=== PATIENT | female | born 1955 | race Caucasian/White ===

== ENCOUNTER 2022-08-11 16:51 | Emergency (ER) | payer OTHER ==
[~2022-08-11] VITALS: Ht 167.6 cm; Wt 96.2 kg
[2022-08-11 17:10] VITALS: BP 148/91
[2022-08-11 17:50] LABS: BASOPHIL # 0.1 10^3/uL (0.0-0.1); BASOPHIL % 0.7 % (0.0-0.2); EOSINOPHIL # 0.2 10^3/uL (0.0-0.2); LYMPHOCYTES # 1.95 10^3/uL1 (1.0-4.8); LYMPHOCYTES % 24.3 % (24.0-44.0); MEAN CORP HGB 30.8 pg (26-34); MONOCYTES # 0.7 10^3/uL (0.3-0.8); MONOCYTES % 8.6 % (5.0-12.0); NEUTROPHIL # 5.1 10^3/uL (1.8-7.7); NEUTROPHILS % 64.2 % (41.0-85.0); PLATELET COUNT 283 10^3/uL (150-400); RED CELL DISTRIBUTION WIDTH 13.5 % (11.5-14.5)
[2022-08-11 18:01] LABS: CARBON DIOXIDE 22.7 mmol/L (20.0-32)
--- NOTE | 2022-08-11 18:04 | DIREP ---
PROCEDURE:CHEST 1 VIEW COMPARISON:None. INDICATIONS:sob FINDINGS: LUNGS/PLEURA:Mild interstitial thickening within the bilateral hemithoraces may reflect senescent changes or potential underlying chronic lung disease. No confluent airspace consolidation, pleural effusion or pneumothorax is identified. VASCULATURE:Normal. Unremarkable pulmonary vasculature. CARDIAC:Normal. No cardiac silhouette abnormality or cardiomegaly. MEDIASTINUM:Normal. No visible mass or adenopathy. BONES:Degenerative changes of the spine. Remote healed fracture of the left mid clavicle. Degenerative changes of the shoulders. CONCLUSION: 1. Senescent changes versus potential underlying chronic lung disease. No superimposed acute cardiopulmonary abnormality is identified. Dictated by: Juan Nevarez M.D. On 08/11/2022 at 05:59 PM
--- NOTE | 2022-08-11 18:52 | PCM.EKG ---
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
--- NOTE | 2022-08-11 19:07 | ER.PDOC ---
General Chief Complaint: General Complaint Stated Complaint: GENERAL TRAVEL OUT OF US: No Time seen by MD: 17:30 Source: patient Exam Limitations: no limitations History of Present Illness Initial Comments Patient is a 66-year-old female with a past medical history of COPD and CHF who comes in with some mild complaints. The main complaint the patient has is shortness of breath. Patient states that she is currently at her daughter's house and thinks that their Internet router is giving her carbon monoxide poisoning. Patient does not smoke cigarettes.Patient states that she also feels like the routers are shocking her causing her to have shortness of breath. Patient states that she has no SI HI or has any AVH she is also alert and oriented x4. She does seem to have some of these fixed delusions. However since I do not have much history to go off on we will plan to work patient up. Patient does state that the routers make her shortness of breath worse and get ting way from the routers makes them better. Difficult to obtain more history at this time patient is alert and oriented and will answer all the questions she does have some odd complaints. Allergies: Coded Allergies: promethazine (Verified Allergy, Unknown, 08/11/22) Uncoded Allergies: steriods (Allergy, Unknown, 08/11/22) Past Medical History Medical History: congestive heart failure, COPD, high cholesterol Surgical History: cholecystectomy Family History Significant Family History: no pertinent family hx Social History Smoking: less than 1 pack/day Alcohol Use: none Drug Use: none Reviewed Nursing Reviewed: Vital Signs, Abn. Noted, Nursing Assessment Review of Systems Constitutional: denies no symptoms reported, denies see HPI, denies chills, denies diaphoresis, denies fever, denies malaise, denies weakness, denies other EENTM: denies no symptoms reported, denies see HPI, denies eye pain, denies blurred vision, denies tearing, denies double vision, denies ear pain, denies ear discharge, denies nose pain, denies nose congestion, denies throat pain, denies throat swelling, denies mouth pain, denies mouth swelling, denies other Respiratory: shortness of breath Cardiovascular: denies no symptoms reported, denies see HPI, denies chest pain, denies edema, denies palpitations, denies syncope, denies other Gastrointestinal: denies no symptoms reported, denies see HPI, denies abdominal pain, denies constipation, denies diarrhea, denies nausea, denies vomiting, denies other Genitourinary: denies no symptoms reported, denies see HPI, denies discharge, denies dysuria, denies frequency, denies hematuria, denies pain, denies other Musculoskeletal: denies no symptoms reported, denies see HPI, denies back pain, denies gout, denies joint pain, denies joint swelling, denies muscle pain, denies muscle stiffness, denies neck pain, denies other Skin: denies no symptoms reported, denies see HPI, denies change in color, denies change in hair/nails, denies dryness, denies lesions, denies lumps, denies rash, denies other Psychiatric/Neurological: denies no symptoms reported, denies see HPI, denies anxiety, denies depressed, denies emotional problems, denies headache, denies numbness, denies paresthesia, denies pre-existing deficit, denies seizure, denies tingling, denies tremors, denies weakness, denies other Hematologic/Lymphatic: denies no symptoms reported, denies see HPI, denies anemia, denies blood clots, denies easy bleeding, denies easy bruising, denies swollen glands, denies other Immunological/Allergic: denies no symptoms reported, denies see HPI, denies food allergy, denies grass allergy, denies mold allergy, denies pollen allergy, denies HIV/AIDS, denies transplant Physical Exam General Appearance: Anxious EENT: eyes nml inspection, nml ENT inspection, pharynx nml Neck: Non-Tender, Full Range of Motion, Supple Respiratory: chest non-tender, lungs clear, normal breath sounds, no respiratory distress CVS: reg rate & rhythm, no murmur, no gallop, pulses nml, nml capillary refill Gastrointestinal: Normal Bowel Sounds, No Organomegaly, No Pulsatile Mass, Non Tender Back: Normal Inspection, No CVA Tenderness Extremities: Normal Range of Motion, Non-Tender Neurologic/Psychiatric: centerpuncher II-XII NML as Tested, No Motor/Sensory Deficits, Alert, Oriented x 3 Skin: Normal Color Lymphatic: No Adenopathy Results/Orders Results/Orders Orders - TAMRA COLLINS MD Cbc With Auto Diff (08/11/22 17:13) Basic Metabolic Panel (08/11/22 17:13) Co-Ox Carboxyhemoglobin (08/11/22 17:13) Lactic Acid(Ml) (08/11/22 17:13) Venous Blood Gas (08/11/22 17:13) Xr Chest 1v (08/11/22 17:48) Ekg-Routine (08/11/22 17:48) Vital Signs Date Time Temp Pulse Resp B/P (MAP) Pulse Ox O2 Delivery O2 Flow Rate FiO2 08/11/22 17:10 98.1 69 18 97 08/11/22 17:10 98.1 69 18 148/91 (110) 97 Room Air* 0 21 08/11/22 17:10 98.1 69 18 Laboratory Tests Test 08/11/22 17:35 08/11/22 17:40 White Blood Count 8.0 10^3/uL (4.5-11.0) Red Blood Count 4.81 10^6/uL (4.00-5.20) Hemoglobin 14.8 g/dL (12.0-15.0) Hematocrit 48.7 % (36.0-46.0) H Mean Corpuscular Volume 101.2 fL (78-100) H Mean Corpuscular Hemoglobin 30.8 pg (26-34) Mean Corpuscular Hemoglobin Concent 30.4 g/dL (33-36.5) L Red Cell Distribution Width 13.5 % (11.5-14.5) Platelet Count 283 10^3/uL (150-400) Mean Platelet Volume 9.3 fL (7.8-11.0) Neutrophils (%) (Auto) 64.2 % (41.0-85.0) Lymphocytes (%) (Auto) 24.3 % (24.0-44.0) Monocytes (%) (Auto) 8.6 % (5.0-12.0) Neutrophils # (Auto) 5.1 10^3/uL (1.8-7.7) Lymphocytes # (Auto) 1.95 10^3/uL1 (1.0-4.8) Monocytes # (Auto) 0.7 10^3/uL (0.3-0.8) Absolute Immature Granulocyte (auto 0.02 10^3 u/L (0-2) Absolute Eosinophils (auto) 0.2 10^3/uL (0.0-0.2) Immature Granulocytes % 0.20 % (0.00-0.50) Eosinophils % 2.0 % (0.0-5.0) Basophils % 0.7 % (0.0-0.2) H Basophils # 0.1 10^3/uL (0.0-0.1) Sodium Level 142 mmol/L (132-145) Potassium Level 4.4 mmol/L (3.6-5.2) Chloride Level 105.0 mmol/L (96-109) Carbon Dioxide Level 22.7 mmol/L (20.0-32) Glucose Level 83 mg/dL (70-110) Blood Urea Nitrogen 20 mg/dL (7-18) H Creatinine 0.87 mg/dL (0.59-1.40) Calcium Level 9.4 mg/dL (8.4-10.5) Anion Gap 18.7 Estimated GFR () 79.3 (>/=60) Est GFR (CKD-EPI)(Non-Afr [place]e) 65.6 (>/=60) BUN/Creatinine Ratio 22.0 Lactic Acid Level 1.3 mmol/L (0.5-1.9) POC Blood Gas Site VBG O2 Saturation 80.5 (70-75) H Adis Test N/A Venous Blood pH 7.410 (7.32-7.43) Venous Blood pCO2 at Patient Temp 36.4 MMHG (41-51) L POC Venous pO2 43.1 MMHG (30-50) Venous Blood Base Excess -1.5 Venous Blood Temperature 37.0 Blood Gas Total Hemoglobin 16.2 % (12.0-16.0) H Deoxyhemoglobin 18.2 % (0.0-5.0) H Carboxyhemoglobin 6.6 % (0.0-3.9) H Methemoglobin 0.2 % (0.00-5.0) Total Oxygen Concentration 17.0 % (13.5-17.5) FiO2 21 % (20-101) Total Carbon Dioxide 23.7 mmol/L (23-27) Bicarbonate 22.6 mmol/L (24-28) L Progress Progress Patient here with complaints may have some psych issues going on however not inpatient psych issues however just to make sure that we do not miss anything we will cast a wide net x-ray rule out carbon monoxide poisoning as well as ACS or other causes of shortness of breath patient is not tachycardic and this is much less PE. We will rule out ACS, monoxide poisoning etc. 1902 patient's work-up very reassuring her carboxyhemoglobin levels consistent with her smoking. Will discharge patient with follow-up she voiced understanding when to follow-up and when to return to the ER. ER DEPART Departure Time of Disposition: 19:04 Disposition: 01 HOME / SELF CARE / HOMELESS Impression: Primary Impression: Shortness of breath Condition: Improved Patient Instructions: Shortness of Breath, Smoking Cessation Referrals: PCP,UNKNOWN (PCP) PRIMARY CARE PROVIDER Additional Instructions: As we discussed please follow-up with your primary care provider within 1 week. If you have any new persistent or worsening symptoms or concerns As we discussed please follow-up with your primary care provider within 1 week. If you have any new persistent or worsening symptoms or concerns seek medical attention. Duration or Time Spent with Pa: 35 TAMRA COLLINS MD Aug 11, 2022 19:07
[2022-08-11 19:21] VITALS: BP 122/63
== END 2022-08-11 19:21 | disposition home or self-care (01) ==
LOC: ER 16:51
DX: R06.02 Shortness of breath (principal); I50.9 Heart failure, unspecified; J44.9 Chronic obstructive pulmonary disease, unspecified; F17.200 Nicotine dependence, unspecified, uncomplicated; E78.00 Pure hypercholesterolemia, unspecified; Z90.49 Acquired absence of other specified parts of digestive tract
CPT/HCPCS: 36415; 71045; 80048; 82803; 83605; 85025; 93005; 99285